=== PATIENT | male | born 1945 | race Caucasian/White ===

== ENCOUNTER 2021-04-27 20:52 | Inpatient (IN) ==
[2021-04-27] MEDS ORDERED: PIPERACILLIN SODIUM/TAZOBACTAM 4.5 GM in DEXTROSE 5% IN WATER 50 ML IV ONE (23:31)
[2021-04-27] MEDS ORDERED: VANCOMYCIN 1,500 MG in 0.9 % SODIUM CHLORIDE 500 ML IV ONE (23:31)
--- NOTE | 2021-04-27 23:36 | Emergency Department Note ---
HPI General Chief complaint: Extremity Injury, Lower Stated complaint: Infected RT knee Time Seen by Provider: 04/27/21 21:26 Source: patient Mode of arrival: ambulatory Limitations: no limitations History of Present Illness HPI Narrative: Narrative: 75 yo M w/ no PMH p/w R knee erythema. He reports that he had a contusion to the knee about one week ago. Since then he has developed erythema and pain over the knee. Sx have been constant and progressive since onset. He was seen by minor care and was started on bactrim and keflex and has been compliant w/ this but the erythema has spread despite abx. 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 He denies any known breaks in the skin, injuries, F/C, or other symptoms. The pain is constant w/o alleviating factors. It is worsened by movement but he is still ambulatory. Related Data Previous Rx's Medication Instructions Recorded cephalexin 500 mg capsule 500 mg PO QID 7 Days #28 cap 04/25/21 sulfamethoxazole 800 1 tab PO BID 7 Days #14 tab 04/25/21 mg-trimethoprim 160 mg tablet (Bactrim DS) Allergies Allergy/AdvReac Type Severity Reaction Status Date / Time No Known Drug Allergies Allergy Verified 04/28/21 03:03 Review of Systems ROS ROS Narrative: Narrative: All systems ED: reviewed and negative except as stated. [facility] Narrative Patient History Narrative: Narrative: Medical/Surgical/Family History All Active Problems (Updated 04/28/21 @ 02:11 by Shubham Pennington MD) Cellulitis of right knee (Acute) Right knee pain (Acute) Social History Smoking Status: Never smoker Alcohol Intake Frequency: does not drink Substance Use: does not use Exam Narrative Narrative: Narrative: General Limitations: no limitations General appearance: Present alert and in no apparent distress Head Head: Present atraumatic and normocephalic Chest Chest: Present normal inspection and symmetric chest wall rise Respiratory Respiratory: Present normal lung sounds bilaterally; Absent accessory muscle use or decreased breath sounds Cardiovascular Cardiovascular: Present regular rate, normal rhythm, +S1, +S2 and other (2+ B/L radial pulses); Absent systolic murmur or diastolic murmur Adbominal Abdominal: Present soft and normal bowel sounds; Absent distention or tenderness Extremities Extremities: Present other (R knee w/ flexion somewhat limited due to pain but predominantly intact. Extension intact. Erythema over the entire anterior knee from medial to lateral which is warm, tender, blanching w/o induration or fluctuance. ); Absent pedal edema Neurological Neurological: Present alert and oriented X3 Psychiatric Psychiatric: Present normal affect Skin Skin: Present warm (WNL) and dry Course Vital Signs Vital signs: Vital Signs Temperature 98.1 F 04/27/21 20:53 Pulse Rate 80 04/27/21 20:53 Respiratory Rate 18 04/27/21 20:53 Blood Pressure 133/78 04/27/21 20:53 Pulse Oximetry (%) 98 04/27/21 20:53 Temperature 98.6 F 04/28/21 03:32 Pulse Rate 63 04/28/21 03:32 Respiratory Rate 20 04/28/21 03:32 Blood Pressure 119/76 04/28/21 03:32 Pulse Oximetry (%) 96 04/28/21 03:32 MDM MDM Narrative Medical decision making narrative: 75 yo M p/w R knee pain, erythema. DDx - sepsis, NSTI, septic arthritis, cellulitis Pt presented stable, in NAD. His evaluation was at a minimum c/w cellulitis refractory to oral abx thus I started him on vanc and zosyn. He was nontoxic in appearance and did not meet SIRS criteria. He had no rapid progression, minimal pain and NSTI was unlikely. Septic arthritis seemed much less likely given his nearly intact active ROM and minimal to no pain w/ passive ROM, however CRP and ESR were elevated. I did not feel comfortable completing arthrocentesis in the ED as the erythema covered all access points to the joint. Given the risk of introducing bacteria into the synovial fluid along w/ my relatively lower suspicion for septic arthritis I felt that it would be reasonable to have pt assessed by ortho in the AM if he had no improvement. I discussed this plan w/ Dr Collado who was in agreement. He also requested a lactic acid and knee XR which I ordered. Lab Data Result diagrams: 04/27/21 23:43 04/27/21 23:42 Labs: Lab Results 04/27/21 04/27/21 04/28/21 Range/Units 23:42 23:43 02:20 WBC 11.8 H (4.5-11.0) K/mcL RBC 4.23 L (4.63-6.08) M/mcL Hgb 13.8 (13.7-17.5) g/dL Hct 38.6 L (40.1-51.0) % MCV 91.3 (80.0-100.0) fL MCH 32.6 (26.0-34.0) pg MCHC 35.8 (31.0-36.0) g/dL RDW 12.7 (11.5-14.5) % Plt Count 182 (140-440) K/mcL MPV 10.1 (7.4-10.4) fL Neut % (Auto) 77.2 (38.0-78.0) % Lymph % (Auto) 11.6 L (15.5-49.0) % [place] % (Auto) 10.2 (1.0-12.0) % Eos % (Auto) 0.7 (0.0-7.0) % Baso % (Auto) 0.3 (0.0-2.0) % Lymph # (Auto) 1.37 L (1.50-4.80) K/mcL [place] # (Auto) 1.20 H (0.10-0.90) K/mcL Eos # (Auto) 0.08 (0.00-0.70) K/mcL Baso # (Auto) 0.04 (0.00-0.30) K/mcL Absolute Neutrophils 9.09 H (1.80-8.00) K/mcL ESR 33 H (0-20) mm/hr VBG Lactic Acid 0.6 (0.5-2.0) mmol/L Sodium 129 L (133-145) mmol/L Potassium 4.2 (3.3-5.1) mmol/L Chloride 94 L (96-108) mmol/L Carbon Dioxide 25 (22-30) mmol/L Anion Gap 10.0 (8.0-16.0) BUN 18 (8-23) mg/dL Creatinine 1.2 (0.7-1.2) mg/dL GFR Calculation 59 Glucose 117 H (70-105) mg/dL Calcium 8.2 L (8.6-10.4) mg/dL Total Bilirubin 0.6 (0.1-1.0) mg/dL AST 39 (<40) U/L ALT 28 (<40) U/L Alkaline Phosphatase 67 (39-117) U/L C-React Prot High Sens 105.4 H (1.0-3.0) mg/L Total Protein 6.6 (5.9-8.4) gm/dL Albumin 3.7 (3.2-5.2) gm/dL Globulin 2.9 (2.2-3.7) gm/dL Albumin/Globulin Ratio 1.3 (1.0-2.3) Discharge Plan Patient/Caregiver Discharge Instructions Pt seen by RETAIL PRESENTATION SPECIALIST/PA only: No Clinical Impression: Right knee pain, Cellulitis of right knee Patient Disposition: Xfer As Inpt ([facility]) Condition: Fair Discharge Date/Time: 04/28/21 02:45
[2021-04-28 00:21] LABS: Basophils # (Auto) 0.04 K/mcL (0.00-0.30); Basophils % (Auto) 0.3 % (0.0-2.0); Eosinophils # (Auto) 0.08 K/mcL (0.00-0.70); Eosinophils % (Auto) 0.7 % (0.0-7.0); Hematocrit 38.6 % (40.1-51.0); Hemoglobin 13.8 g/dL (13.7-17.5); Lymphocytes # (Auto) 1.37 K/mcL (1.50-4.80); Lymphocytes % (Auto) 11.6 % (15.5-49.0); Mean Cell Volume 91.3 fL (80.0-100.0); Mean Corpuscular HGB Conc 35.8 g/dL (31.0-36.0); Mean Platelet Volume 10.1 fL (7.4-10.4); Monocytes % (Auto) 10.2 % (1.0-12.0); Neutrophils % (Auto) 77.2 % (38.0-78.0); Platelet Count 182 K/mcL (140-440); RBC 4.23 M/mcL (4.63-6.08); Red Cell Distribution Width 12.7 % (11.5-14.5); WBC 11.8 K/mcL (4.5-11.0)
[2021-04-28 00:34] LABS: Erythrocyte Sedimentation Rate 33 mm/hr (0-20)
[2021-04-28 00:38] LABS: ALT/SGPT 28 U/L (<40); AST/SGOT 39 U/L (<40); Albumin 3.7 gm/dL (3.2-5.2); Albumin/Globulin Ratio 1.3 (1.0-2.3); Alkaline Phosphatase 67 U/L (39-117); Bilirubin,Total 0.6 mg/dL (0.1-1.0); Blood Urea Nitrogen 18 mg/dL (8-23); Calcium 8.2 mg/dL (8.6-10.4); Carbon Dioxide 25 mmol/L (22-30); Chloride 94 mmol/L (96-108); Globulin 2.9 gm/dL (2.2-3.7); Glomerular Filtration Rate 59; Glucose 117 mg/dL (70-105)
[2021-04-28 00:51] LABS: CRP,High Sensitivity 105.4 mg/L (1.0-3.0)
[2021-04-28] MEDS ORDERED: VANCOMYCIN PER PHARMACY IV ONE (02:21)
[2021-04-28] MEDS ORDERED: ACETAMINOPHEN 325 MG TABLET PO PRN ×2 (02:23→08:48)
[2021-04-28] MEDS ORDERED: PIPERACILLIN SODIUM/TAZOBACTAM 4.5 GM in DEXTROSE 5% IN WATER 50 ML IV SCH (02:30)
--- NOTE | 2021-04-28 03:20 | XRay Report ---
CLINICAL INFORMATION: Pain and erythema COMPARISON: 04/25/2021 FINDINGS: Patellofemoral and tibiofemoral joint spaces are normal in width and alignment arthritic change. No effusions are present. There are no osseous abnormalities. Moderate diffuse prepatellar soft tissue swelling could indicate cellulitis and possibly prepatellar bursitis IMPRESSION: Diffuse prevertebral soft tissue swelling which may indicate cellulitis and prepatellar bursitis Interpreted and Authenticated by: Jeremiah Houston 04/28/21
[2021-04-28] MEDS ORDERED: traZODone HCL 50 MG TABLET PO PRN (08:48)
[2021-04-28] MEDS ORDERED: IPRATROPIUM/ALBUTEROL 3 ML AMPUL.NEB NEB PRN (08:48)
[2021-04-28] MEDS ORDERED: morphine 4 MG/ML VIAL IV PRN (08:48)
[2021-04-28] MEDS ORDERED: ONDANSETRON 4 MG/2 ML VIAL IV PRN (08:48)
[2021-04-28] MEDS ORDERED: VANCOMYCIN PER PHARMACY IV SCH (09:00)
--- NOTE | 2021-04-28 09:04 | Internal Med History&Physical ---
HPI History of Present Illness Patient information: Note initiated : 04/28/21 at 8:52 am Service Date, if different from initiated Date: [] Patient: Jerod Gonzales 75 y/o M admitted on 04/28/21 for Infected RT knee. Chief Complaint: [right knee swelling and pain] Chief complaint: right knee swelling and pain History of present illness: Mr. Gonzales is a 75 year old M no past medical history presenting with 1 week history of swelling and pain of his right knee. He thought that he might have been bumped his right knee into something. He started to experience swelling and pain of his right knee with the area of swelling gradually spreading. He is complaining of the 8 out of 10, deep, constant pain radiating from his right knee to the mid thigh and to lower leg, respectively. Exacerbating factors including moving his right knee joint and alleviating factors including resting. He denies any systemic symptoms such as fever, chills, diaphoresis, change in appetite, general body weakness, or GI upset such as nausea or vomiting. He presented to the minor care and was being given oral antibiotics Bactrim and Keflex for the past Sunday. He went back to the minor care yesterday due to worsening of his symptoms. He presented to our ED overnight due to continued worsening of his symptoms. Vital signs upon ED presentations within normal limits. Labs significant for mild leukocytosis with WBC 11.8. Serum lactic acid 0.6. ESR 33. Right knee x-ray showing diffuse prevertebral soft tissue swelling which may indicate cellulitis in the prepatella bursitis. Constitutional Constitutional: Absent chills, excessive sweating, fatigue, fever(s) or weakness EENT Eyes: Absent blurry vision, change in vision, loss of vision or other visual disturbances Ears: Absent decreased hearing or tinnitus Nose, mouth and throat: Absent abnormal hearing, dry mouth, headache(s), nasal congestion or sore throat Cardiovascular Cardiovascular: Absent chest pain, chest pain at rest, edema, irregular heart rhythm or palpatations Respiratory Respiratory: Absent cough, dyspnea or wheezing Gastrointestinal Gastrointestinal: Absent abdominal pain, constipation, diarrhea, nausea or vomiting Musculoskeletal Musculoskeletal: Present arthralgias, joint swelling and limited range of motion; Absent back pain, deformity, muscle cramps, muscle weakness or numbness Integumentary Integumentary: Absent lesions, rash or wounds Neurological Neurological: Absent focal weakness, headache(s) or numbness Psychiatric Psychiatric: Absent anxiety, depression or hallucinations PFSH PFSH All Active Problems (Updated 04/28/21 @ 09:14 by Harley Collado MD) Hyponatremia (Acute) Bursitis of right knee (Acute) Cellulitis of right knee (Acute) Right knee pain (Acute) Social History alcohol intake frequency: does not drink substance use type: does not use MEDS/ALLERGIES Home Medications and Allergies Home Medications Medication Instructions Recorded Confirmed Type cephalexin 500 mg capsule 500 mg PO QID 7 Days #28 cap 04/25/21 04/28/21 Rx sulfamethoxazole 800 1 tab PO BID 7 Days #14 tab 04/25/21 04/28/21 Rx mg-trimethoprim 160 mg tablet (Bactrim DS) Allergies Allergy/AdvReac Type Severity Reaction Status Date / Time No Known Drug Allergies Allergy Verified 04/28/21 03:03 EXAM Constitutional Vitals: Temp Pulse Resp BP Pulse Ox 36.6 C 68 20 117/70 93 04/28/21 07:44 04/28/21 07:44 04/28/21 07:44 04/28/21 07:44 04/28/21 07:44 General appearance: cooperative and no acute distress Head Head exam: Present atraumatic and normocephalic Eye Eye exam: Present EOMI and PERRL ENT ENT exam: Present mucous membranes moist, normal exam and normal external ear exam Neck Neck exam: Present normal inspection; Absent lymphadenopathy, tenderness or thyromegaly Respiratory Respiratory exam: Absent accessory muscle use, respiratory distress or wheezes Cardiovascular Cardiovascular exam: Present normal rate and rhythm; Absent JVD GI/Abdominal GI/Abdominal exam: Present normal bowel sounds and soft; Absent organomegaly or tenderness Rectal Rectal exam: Present deferred Extremities Exam Extremities exam: Present joint swelling, normal capillary refill and tenderness; Absent full ROM or normal inspection Additional comments: Swelling, erythema, tenderness to touch, warm , limited ROM of the right knee. Neurological Exam Neurological exam: Present alert, CN II-XII intact and oriented X3; Absent motor sensory deficit Psychiatric Psychiatric exam: Present normal affect and normal mood; Absent anxious or depressed Skin Skin exam: Present dry and intact DATA Data Completed and Pending Labs: Labs from last 24 hours 04/28/21 04/27/21 04/27/21 02:20 23:43 23:42 WBC 11.8 H RBC 4.23 L Hgb 13.8 Hct 38.6 L MCV 91.3 MCH 32.6 MCHC 35.8 RDW 12.7 Plt Count 182 MPV 10.1 Neut % (Auto) 77.2 Lymph % (Auto) 11.6 L [place] % (Auto) 10.2 Eos % (Auto) 0.7 Baso % (Auto) 0.3 Lymph # (Auto) 1.37 L [place] # (Auto) 1.20 H Eos # (Auto) 0.08 Baso # (Auto) 0.04 Absolute Neutrophils 9.09 H ESR 33 H VBG Lactic Acid 0.6 Sodium 129 L Potassium 4.2 Chloride 94 L Carbon Dioxide 25 Anion Gap 10.0 BUN 18 Creatinine 1.2 GFR Calculation 59 Glucose 117 H Calcium 8.2 L Total Bilirubin 0.6 AST 39 ALT 28 Alkaline Phosphatase 67 C-React Prot High Sens 105.4 H Total Protein 6.6 Albumin 3.7 Globulin 2.9 Albumin/Globulin Ratio 1.3 A/P Assessment and plan (1) Cellulitis of right knee: Status: Acute (2) Bursitis of right knee: Status: Acute (3) Hyponatremia: Status: Acute Narrative A/P Narrative: Assessment and Plans: 1. Cellulitis and bursitis of the right knee: Inpatient med surg Consult Dr. Gomes orthopedic surgeon, recs. appreciated NPO with NS@100cc/hr Lactic acid CRP, ESR, Procalcitonin cbc w/ auto diff in the morning to trend WBC Vancomycin with MRSA screening Zosyn Tylenol PRN fever/mild pain Percocet PRN moderate pain Morphine IV PRN severe pain Bedrest Physical therapy Occupational therapy 2. Hyponatremia: NPO with NS@100cc/hr CMP in the morning to trend serum sodium level GI ppx: not currently indicated DVT ppx: SCDs Code status: Full Prognosis: stable Disposition: Inpatient med surg Time Spent With Patient Time: Total time spent is greater than 50% in coordination of care (as documented) at patient's floor/unit and/or counseling patient: Total time spent with greater than 50% in coordination of care (as documented) at patient's floor/unit and/or counseling patient:: Greater than 35 minutes QUALITY Stroke Symptom Onset Unknown: No VTE Deep Vein Thrombosis/Pulmonary Embolism Present on Admission: No
[2021-04-28] MEDS: DOCUSATE SODIUM 100 MG CAPSULE PO SCH ×2 (09:49→20:56)
[2021-04-28] MEDS: 0.9 % SODIUM CHLORIDE 1,000 ML IV SCH (09:49)
[2021-04-28] MEDS: PIPERACILLIN SODIUM/TAZOBACTAM 3.375 GM in DEXTROSE 5% IN WATER 50 ML IV SCH ×4 (09:49→23:30)
[2021-04-28] MEDS: oxyCODONE/APAP 5/325MG TABLET PO PRN ×3 (10:14→23:08)
[2021-04-28] MEDS: VANCOMYCIN 1,000 MG in 0.9 % SODIUM CHLORIDE 250 ML IV SCH ×2 (10:59→20:56)
[2021-04-28] MEDS: 0.9 % SODIUM CHLORIDE 10 ML SYRINGE IV SCH ×2 (14:04→22:28)
--- NOTE | 2021-04-28 14:43 | Consultation ---
DATE OF CONSULTATION: 04/28/2021 REASON FOR CONSULTATION: Right knee cellulitis. CONSULTING PROVIDER: Harley Collado M.D. HISTORY OF PRESENT ILLNESS: The patient is a 75-year-old male, otherwise healthy, who presented to the emergency department yesterday evening with complaints of increasing right knee pain, swelling, and redness. He reports maybe a week or so ago he was working on his knees when he thought it was just a bruise, which he was trying to explain for the reason for the increase in pain. He was subsequently seen in [facility] care who started him on oral antibiotics and subsequently saw him a day or two later and did an IM antibiotic injection. However, this only worsen his symptoms. The two antibiotics that he was given were Keflex and Bactrim. He has been ambulating on this and range of motion was okay. However, it is worsening and has been admitted to the hospitalist service for IV antibiotics. On presentation, he has no other complaints. PAST MEDICAL HISTORY: None. PAST SURGICAL HISTORY: Not related. ALLERGIES: No known drug allergies. MEDICATIONS: None routinely, but currently he was taking Bactrim and Keflex. SOCIAL HISTORY: He resides locally with his . He denies tobacco use or alcohol. REVIEW OF SYSTEMS: Denies any weakness or fevers or chills. Otherwise, a 10-point review of systems other than HPI is negative. PHYSICAL EXAMINATION: GENERAL: The patient is alert, oriented, interactive, appropriate, not in acute distress. EXTREMITIES: Examination of the right lower extremity isolated to the knee reveals that he has significant swelling over top of the patella itself. There is no joint effusion that is significant. There is some positive ballottement to the patella itself and this is painful. There is erythema that surrounds this and goes up proximal to the patella as well as medially. It almost wraps circumferentially but the most posterior aspect of the popliteal fossa is not erythematous and goes to approximately a third down the leg. This is greater than the outlined portion, which was done at the urgent care facility. On range of motion, he has full knee extension, flexion approximately to 90 degrees. However, it is somewhat painful the more the flexion is, given the tightness over the anterior aspect of the knee. The foot is warm and well perfused, otherwise. IMAGING: He has plain radiographs of the knee, which did not demonstrate any bony abnormalities. Joint spaces are well maintained. No significant arthritis and does not demonstrate any joint effusion, but does have swelling of the soft tissue over the anterior aspect of the patella itself. LABORATORY DATA: He has a MRSA screen, which is pending. CRP is 9.6. He has a sodium of 129, glucose 117, creatinine 1.2. White count 11.8 with 77% neutrophils, which is high normal. He has an ESR of 33. ASSESSMENT AND PLAN: This 75-year-old male who has a septic right knee prepatellar bursitis. I discussed the diagnosis with him today. He has been on IV antibiotics x1 dose this morning. Currently on vancomycin and Zosyn. I discussed my recommendation that I am not concerned regarding the joint involvement. We will try to treat this with 24 hours of IV antibiotics and see if there is some improvement. If there is no improvement, we could then proceed with right knee incision and drainage of the bursa, which will debulk or decrease the bacterial load and likely make it more amenable to antibiotic treatment. However, ideally if it can be treated with antibiotics alone, would be the preferred method. I discussed this with them. They understand. We will reevaluate in the morning. If there is no improvement regarding the erythema and pain, we would then proceed with surgical intervention. He will be n.p.o. at midnight. Otherwise, questions were answered. FREDDY:jordyn Job ID: [id number] Doc ID: [id number] MD SOBEIDA Mejia
[2021-04-28] MEDS: SENNOSIDES 1 TABLET PO SCH (22:29)
[2021-04-29] MEDS: oxyCODONE/APAP 5/325MG TABLET PO PRN ×4 (04:19→18:55)
[2021-04-29] MEDS: 0.9 % SODIUM CHLORIDE 1,000 ML IV SCH ×4 (04:21→16:00)
[2021-04-29] MEDS: PIPERACILLIN SODIUM/TAZOBACTAM 3.375 GM in DEXTROSE 5% IN WATER 50 ML IV SCH ×4 (05:11→23:47)
[2021-04-29] MEDS: 0.9 % SODIUM CHLORIDE 10 ML SYRINGE IV SCH ×3 (05:27→23:46)
--- NOTE | 2021-04-29 06:44 | Orthopedic Progress Note ---
SUBJECTIVE Subjective Patient information: Note initiated : 04/29/21 at 6:41 am Service Date, if different from initiated Date: [] Patient: Jerod Gonzales 75 y/o M admitted on 04/28/21 for Infected RT knee. Chief Complaint: [no acute events overnight. pain about the same] Constitutional Vitals: Vital Signs Temp Pulse Resp BP Pulse Ox 98.1 F 62 20 111/70 92 04/29/21 04:00 04/29/21 04:00 04/29/21 04:00 04/29/21 04:00 04/29/21 04:00 Period Temp Pulse Resp BP Sys/Enriquez Pulse Ox Last 24 Hr 97.8 F-99.5 F 62-69 18-22 111-125/70-76 91-94 Intake and Output 04/28/21 04/29/21 04/29/21 21:59 05:59 13:59 Intake Total 1110 1900 Output Total 1450 1275 Balance -340 625 Weight 193 lb Intake & Output: Intake & Output 04/28/21 04/29/21 04/29/21 21:59 05:59 13:59 Intake Total 1110 1900 Output Total 1450 1275 Balance -340 625 Weight 193 lb Intake: IV 350 1050 Sodium Chloride 0.9% 1,000 ml @ 1000 100 mls/hr IV .Q10H DAVID Rx#: [id number] Zosyn 3.375 gm In Dextrose 5% 100 50 in Water 50 ml @ 100 mls/hr IV Q6H DAVID Rx#:[id number] Vancomycin 1,000 mg In Sodium 250 Chloride 0.9% 250 ml @ 250 mls/ hr IV Q12H DAVID Rx#:[id number] Oral 760 850 Output: Void Amount 1450 1275 Other: Meal Lunch Percent of Meal Consumed 100% Feeding Ability Independent Urine Appearance Clear Clear Urine Color Bright Yellow Pale Urine Odor Normal Additional findings Additional findings: alert, appropriate -no significant difference from prior exam- erythema spread the same with pitting edema over the medial tibial face. ROM 0-70 degrees. swelling over the patella itself. tender with palpation OBJ DATA Labs CBC & Chem 7: 04/27/21 23:43 04/27/21 23:42 Labs: Abnormal Lab Results 04/27/21 04/27/21 04/27/21 23:43 23:42 23:42 WBC 11.8 H RBC 4.23 L Hct 38.6 L Lymph % (Auto) 11.6 L Lymph # (Auto) 1.37 L [place] # (Auto) 1.20 H Absolute Neutrophils 9.09 H ESR 33 H Sodium 129 L Chloride 94 L Glucose 117 H Calcium 8.2 L C-Reactive Protein 9.60 H C-React Prot High Sens 105.4 H Meds: Medications Acetaminophen (Acetaminophen 325 Mg Tablet) 650 mg PO Q6HP PRN; Protocol PRN Reason: Per Pain Protocol/Fever > 101 Albuterol/Ipratropium (Ipratropium/Albuterol 3 Ml Ampul.Neb) 3 ml NEB Q4HRT PRN PRN Reason: Wheezing Docusate Sodium (Docusate Sodium 100 Mg Capsule) 100 mg PO BID [facility] Last Admin: 04/28/21 20:56 Dose: 100 mg Documented by: Sodium Chloride (Sodium Chloride 0.9%) 1,000 mls @ 100 mls/hr IV .Q10H [facility] Last Admin: 04/29/21 05:27 Dose: Not Given Documented by: Piperacillin Sod/Tazobactam (Sod 3.375 gm/ Dextrose) 50 mls @ 100 mls/hr IV Q6H [facility] Last Admin: 04/29/21 05:11 Dose: 100 mls/hr Documented by: Vancomycin HCl 1,000 mg/ (Sodium Chloride) 250 mls @ 250 mls/hr IV Q12H [facility] Last Infusion: 04/28/21 21:56 Dose: Infused Documented by: Morphine Sulfate (Morphine 4 Mg/Ml Vial) 4 mg IV Q4HP PRN; Protocol PRN Reason: Per Pain Protocol Ondansetron HCl (Ondansetron 4 Mg/2 Ml Vial) 4 mg IV Q6HP PRN PRN Reason: Nausea And Vomiting Oxycodone/Acetaminophen (Oxycodone/Apap 5/325mg Tablet) 1 tab PO Q4HP PRN; Protocol PRN Reason: Per Pain Protocol Last Admin: 04/29/21 04:19 Dose: 1 tab Documented by: Senna (Sennosides 1 Tablet) 2 tab PO HS [facility] Last Admin: 04/28/21 22:29 Dose: Not Given Documented by: Sodium Chloride (0.9 % Sodium Chloride 10 Ml Syringe) 10 ml IV Q8 [facility] Last Admin: 04/29/21 05:27 Dose: Not Given Documented by: Trazodone HCl (Trazodone Hcl 50 Mg Tablet) 25 mg PO HSP PRN PRN Reason: Insomnia Vancomycin HCl (Vancomycin Per Pharmacy) 1 order IV UD DAVID A/P Assessment and plan (1) Bursitis of right knee: Assessment and plan: HD 2 with septic pre patellar bursitis. - no improvement on 24 hours IV abx. Recommend formal irrigation/debridement of the septic bursa. Discussed with patient. He understands and does wish to proceed in this fashion. Will perform today after 12 noon when OR available. Status: Acute Time Spent With Patient Time: Total time spent is greater than 50% in coordination of care (as documented) at patient's floor/unit and/or counseling patient:
[2021-04-29 06:45] LABS: Basophils # (Auto) 0.04 K/mcL (0.00-0.30); Basophils % (Auto) 0.5 % (0.0-2.0); Eosinophils # (Auto) 0.18 K/mcL (0.00-0.70); Hematocrit 36.4 % (40.1-51.0); Hemoglobin 12.4 g/dL (13.7-17.5); Lymphocytes # (Auto) 1.06 K/mcL (1.50-4.80); Mean Cell Volume 93.8 fL (80.0-100.0); Mean Corpuscular HGB Conc 34.1 g/dL (31.0-36.0); Mean Platelet Volume 10.3 fL (7.4-10.4); Monocytes # (Auto) 1.08 K/mcL (0.10-0.90); Monocytes % (Auto) 12.2 % (1.0-12.0); Neutrophils % (Auto) 73.3 % (38.0-78.0); Platelet Count 170 K/mcL (140-440); RBC 3.88 M/mcL (4.63-6.08); Red Cell Distribution Width 12.6 % (11.5-14.5); WBC 8.9 K/mcL (4.5-11.0)
[2021-04-29 07:36] LABS: ALT/SGPT 26 U/L (<40); AST/SGOT 29 U/L (<40); Albumin 3.1 gm/dL (3.2-5.2); Alkaline Phosphatase 70 U/L (39-117); Bilirubin,Total 0.7 mg/dL (0.1-1.0); Blood Urea Nitrogen 13 mg/dL (8-23); Calcium 8.2 mg/dL (8.6-10.4); Carbon Dioxide 25 mmol/L (22-30); Chloride 99 mmol/L (96-108); Glomerular Filtration Rate 73; Glucose 99 mg/dL (70-105)
--- NOTE | 2021-04-29 08:02 | EKG ---
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
--- NOTE | 2021-04-29 09:11 | Internal Med Progress Note ---
SUBJECTIVE Subjective Patient information: Note initiated : 04/29/21 at 9:07 am Service Date, if different from initiated Date: [] Patient: Jerod Gonzales 75 y/o M admitted on 04/28/21 for Infected RT knee. Chief Complaint: [] Interval history: Mr. Gonzales is a 75 year old M no past medical history presenting with 1 week history of swelling and pain of his right knee. He thought that he might have been bumped his right knee into something. He started to experience swelling and pain of his right knee with the area of swelling gradually spreading. He is complaining of the 8 out of 10, deep, constant pain radiating from his right knee to the mid thigh and to lower leg, respectively. Exacerbating factors including moving his right knee joint and alleviating factors including resting. He denies any systemic symptoms such as fever, chills, diaphoresis, change in appetite, general body weakness, or GI upset such as nausea or vomiting. He presented to the minor care and was being given oral antibiotics Bactrim and Keflex for the past Sunday. He went back to the minor care yesterday due to worsening of his symptoms. He presented to our ED overnight due to continued worsening of his symptoms. Vital signs upon ED presentations within normal limits. Labs significant for mild leukocytosis with WBC 11.8. Serum lactic acid 0.6. ESR 33. Right knee x-ray showing diffuse prevertebral soft tissue swelling which may indicate cellulitis in the prepatella bursitis. 04/29: Afebrile overnight. WBC 8.9. Blood cultures no growth to date. c/o 5/10 dull constant right knee pain. Denies fever or chills or sweating. Continue IV fluid, Vancomycin/Zosyn, pain control. Seen by Dr. Gomes, decided to perform formal irrigation and debridement at noon today. Constitutional Vitals: Vital Signs Temp Pulse Resp BP Pulse Ox 36.8 C 63 20 119/74 92 04/29/21 07:20 04/29/21 07:20 04/29/21 07:20 04/29/21 07:20 04/29/21 07:20 Period Temp Pulse Resp BP Sys/Enriquez Pulse Ox Last 24 Hr 36.7 C-37.5 C 62-69 18-22 111-125/70-76 91-94 Intake and Output 04/28/21 04/29/21 04/29/21 21:59 05:59 13:59 Intake Total 1110 1900 50 Output Total 1450 1275 Balance -340 625 50 Weight 87.543 kg Intake & Output: Intake & Output 04/28/21 04/29/21 04/29/21 21:59 05:59 13:59 Intake Total 1110 1900 50 Output Total 1450 1275 Balance -340 625 50 Weight 87.543 kg Intake: IV 350 1050 50 Sodium Chloride 0.9% 1,000 ml @ 1000 100 mls/hr IV .Q10H [facility] Rx#: [id number] Zosyn 3.375 gm In Dextrose 5% 100 50 50 in Water 50 ml @ 100 mls/hr IV Q6H [facility] Rx#:[id number] Vancomycin 1,000 mg In Sodium 250 Chloride 0.9% 250 ml @ 250 mls/ hr IV Q12H [facility] Rx#:[id number] Oral 760 850 Output: Void Amount 1450 1275 Other: Meal Lunch Percent of Meal Consumed 100% Feeding Ability Independent Urine Appearance Clear Clear Urine Color Bright Yellow Pale Urine Odor Normal General appearance: average body habitus, cooperative and no acute distress Head Head exam: Present atraumatic and normal inspection Eye Eye exam: Present normal appearance ENT ENT exam: Present mucous membranes moist, normal exam and normal external ear exam Neck Neck exam: Present normal inspection Respiratory Respiratory exam: Present normal respiratory exam Cardiovascular Cardiovascular exam: Present normal rate and rhythm GI/Abdominal GI/Abdominal exam: Present normal bowel sounds Extremities Exam Extremities exam: Present joint swelling and tenderness; Absent full ROM or normal inspection Additional comments: Erythema, warmth, tenderness, swelling of the right knee joint with spread to lower thigh and medial/lateral cano Back Exam Back exam: Present normal inspection Neurological Exam Neurological exam: Present alert and oriented X3 Skin Skin exam: Present intact and warm OBJ DATA Labs CBC & Chem 7: 04/29/21 05:11 04/29/21 05:11 Labs: Abnormal Lab Results 04/29/21 04/29/21 04/27/21 05:11 05:11 23:43 WBC 11.8 H RBC 3.88 L 4.23 L Hgb 12.4 L Hct 36.4 L 38.6 L Lymph % (Auto) 12.0 L 11.6 L [place] % (Auto) 12.2 H Lymph # (Auto) 1.06 L 1.37 L [place] # (Auto) 1.08 H 1.20 H Absolute Neutrophils 9.09 H ESR 33 H Sodium Chloride Glucose Calcium 8.2 L C-Reactive Protein C-React Prot High Sens Albumin 3.1 L 04/27/21 04/27/21 23:42 23:42 WBC RBC Hgb Hct Lymph % (Auto) [place] % (Auto) Lymph # (Auto) [place] # (Auto) Absolute Neutrophils ESR Sodium 129 L Chloride 94 L Glucose 117 H Calcium 8.2 L C-Reactive Protein 9.60 H C-React Prot High Sens 105.4 H Albumin Meds: Medications Acetaminophen (Acetaminophen 325 Mg Tablet) 650 mg PO Q6HP PRN; Protocol PRN Reason: Per Pain Protocol/Fever > 101 Albuterol/Ipratropium (Ipratropium/Albuterol 3 Ml Ampul.Neb) 3 ml NEB Q4HRT PRN PRN Reason: Wheezing Docusate Sodium (Docusate Sodium 100 Mg Capsule) 100 mg PO BID [facility] Last Admin: 04/28/21 20:56 Dose: 100 mg Documented by: Sodium Chloride (Sodium Chloride 0.9%) 1,000 mls @ 100 mls/hr IV .Q10H [facility] Last Admin: 04/29/21 05:27 Dose: Not Given Documented by: Piperacillin Sod/Tazobactam (Sod 3.375 gm/ Dextrose) 50 mls @ 100 mls/hr IV Q6H [facility] Last Infusion: 04/29/21 07:25 Dose: Infused Documented by: Vancomycin HCl 1,000 mg/ (Sodium Chloride) 250 mls @ 250 mls/hr IV Q12H [facility] Last Infusion: 04/28/21 21:56 Dose: Infused Documented by: Morphine Sulfate (Morphine 4 Mg/Ml Vial) 4 mg IV Q4HP PRN; Protocol PRN Reason: Per Pain Protocol Ondansetron HCl (Ondansetron 4 Mg/2 Ml Vial) 4 mg IV Q6HP PRN PRN Reason: Nausea And Vomiting Oxycodone/Acetaminophen (Oxycodone/Apap 5/325mg Tablet) 1 tab PO Q4HP PRN; Protocol PRN Reason: Per Pain Protocol Last Admin: 04/29/21 04:19 Dose: 1 tab Documented by: Senna (Sennosides 1 Tablet) 2 tab PO HS [facility] Last Admin: 04/28/21 22:29 Dose: Not Given Documented by: Sodium Chloride (0.9 % Sodium Chloride 10 Ml Syringe) 10 ml IV Q8 [facility] Last Admin: 04/29/21 05:27 Dose: Not Given Documented by: Trazodone HCl (Trazodone Hcl 50 Mg Tablet) 25 mg PO HSP PRN PRN Reason: Insomnia Vancomycin HCl (Vancomycin Per Pharmacy) 1 order IV UD [facility]ID A/P Assessment and plan (1) Cellulitis of right knee: Status: Acute (2) Bursitis of right knee: Status: Acute (3) Hyponatremia: Status: Acute Narrative A/P Narrative: Assessment and Plans: 1. Cellulitis and bursitis of the right knee: Inpatient med surg Consult Dr. Gomes orthopedic surgeon, recs. appreciated Seen by Dr. Gomes this morning, decided to perform formal irrigation and debridement at noon today. NPO with NS@100cc/hr Lactic acid CRP, ESR, Procalcitonin Blood culture, no growth to date cbc w/ auto diff in the morning to trend WBC Vancomycin with MRSA screening Zosyn Tylenol PRN fever/mild pain Percocet PRN moderate pain Morphine IV PRN severe pain Bedrest Physical therapy Occupational therapy 2. Hyponatremia: NPO with NS@100cc/hr CMP in the morning to trend serum sodium level GI ppx: not currently indicated DVT ppx: SCDs Code status: Full Prognosis: stable Disposition: Inpatient med surg Time Spent With Patient Time: Total time spent is greater than 50% in coordination of care (as documented) at patient's floor/unit and/or counseling patient: Total time spent with greater than 50% in coordination of care (as documented) at patient's floor/unit and/or counseling patient:: Greater than 35 minutes QUALITY Stroke Symptom Onset Unknown: No VTE Deep Vein Thrombosis/Pulmonary Embolism Present on Admission: No
[2021-04-29] MEDS: DOCUSATE SODIUM 100 MG CAPSULE PO SCH ×2 (10:11→21:57)
[2021-04-29] MEDS: VANCOMYCIN 1,000 MG in 0.9 % SODIUM CHLORIDE 250 ML IV SCH (10:34)
[2021-04-29] MEDS ORDERED: ceFAZolin 2 GM in DEXTROSE 5% IN WATER 50 ML IV SCH (12:00)
[2021-04-29] MEDS ORDERED: VANCOMYCIN 1 GM VIAL TOPICAL ONE (12:00)
[2021-04-29] MEDS ORDERED: TRANEXAMIC ACID 1,000 MG/10 ML VIAL ONE (12:18)
[2021-04-29] MEDS ORDERED: fentaNYL 100 MCG/2 ML VIAL IV ONE (12:18)
[2021-04-29] MEDS ORDERED: ONDANSETRON 4 MG/2 ML VIAL ONE (12:18)
[2021-04-29] MEDS ORDERED: DEXAMETHASONE 10 MG/ML VIAL ONE (12:18)
[2021-04-29] MEDS ORDERED: GLYCOPYRROLATE 0.2 MG/ML VIAL IV ONE (12:18)
[2021-04-29] MEDS ORDERED: LIDOCAINE HCL/PF 100 MG/5 ML SYRINGE IV ONE (12:18)
[2021-04-29] MEDS ORDERED: KETAMINE 50 MG/ML Syringe (ANEST) IV ONE (12:18)
[2021-04-29] MEDS ORDERED: PROPOFOL 200 MG/20 ML VIAL IV ONE (12:18)
[2021-04-29] MEDS ORDERED: MAGNESIUM SULFATE 2 GM/50 ML BAG IV ONE (12:18)
[2021-04-29] MEDS ORDERED: BENZOCAINE/MENTHOL 1 LOZENGE PO PRN ×2 (12:36→23:51)
[2021-04-29] MEDS ORDERED: IPRATROPIUM/ALBUTEROL 3 ML AMPUL.NEB NEB PRN (12:36)
[2021-04-29] MEDS ORDERED: METOPROLOL TARTRATE 5 MG/5 ML VIAL IV PRN (12:36)
[2021-04-29] MEDS ORDERED: LABETALOL 5 MG/ML ML IV PRN (12:36)
[2021-04-29] MEDS ORDERED: ACETAMINOPHEN 1,000 MG/100 ML BAG IV ONE (12:36)
[2021-04-29] MEDS ORDERED: METHOCARBAMOL 1,000 MG/10 ML VIAL IV PRN (12:36)
[2021-04-29] MEDS ORDERED: fentaNYL 100 MCG/2 ML VIAL IV PRN (12:36)
[2021-04-29] MEDS ORDERED: ONDANSETRON 4 MG/2 ML VIAL IV PRN (12:36)
[2021-04-29] MEDS ORDERED: NALOXONE HCL 0.4 MG/ML VIAL IV PRN (12:36)
[2021-04-29] MEDS ORDERED: LACTATED RINGERS 250 ML IV PRN (12:36)
[2021-04-29] MEDS ORDERED: LACTATED RINGERS 1,000 ML IV SCH (12:45)
--- NOTE | 2021-04-29 13:16 | Brief Operative Note ---
Brief Operative Note Date of procedure: 04/29/21 Pre-op diagnosis: right knee prepatellar septic bursitis Post-op diagnosis: same Procedure: right knee prepatellar septic bursectomy Grafts/Implants: No Anesthesia: GETA Findings: septic bursitis- no beka purulence Complications: none Surgeon: Cathleen Gomes Estimated blood loss (cc): 0 Tourniquet Time (Minutes): 36 Specimens Removed/Pathology: other Condition: stable Disposition: PACU
[2021-04-29] MEDS ORDERED: LORazepam 2 MG/ML VIAL IV ONE (13:36)
[2021-04-29] MEDS ORDERED: MEPERIDINE 25 MG/ML VIAL IV ONE (13:36)
[2021-04-29] MEDS ORDERED: LORazepam 2 MG/ML VIAL ONE (13:44)
--- NOTE | 2021-04-29 15:10 | Operative Note ---
DATE OF OPERATION: 04/29/2021 PREOPERATIVE DIAGNOSIS: Right knee prepatellar septic bursitis. POSTOPERATIVE DIAGNOSIS: Right knee prepatellar septic bursitis. PROCEDURE PERFORMED: Right knee prepatellar bursectomy with irrigation and debridement and closure. SURGEON: Cathleen Gomes M.D. VARNISHER PLASTICOATER: None. ANESTHESIA: General. INTRAVENOUS FLUIDS: A liter of lactated Ringer's. ESTIMATED BLOOD LOSS: Minimal. TOURNIQUET TIME: 36 minutes at 250 mmHg. ANTIBIOTICS: Two grams Ancef. IMPLANTS: None. PATHOLOGY/LAB: Cultures x2. INTRAOPERATIVE COMPLICATIONS: None apparent. INDICATIONS FOR PROCEDURE: The patient is a 75-year-old male who over a week ago now reports that he had some increasing pain about the knee. He thought it was from working on his knees and had a little abrasion, but the erythema became more prominent and swelling occurred. He was seen in my care x2 and started on Keflex and Bactrim as well as one dose of IV antibiotics; however, he continued to have increasing swelling and pain about the knee. He was seen in the Emergency Department, at that time admitted by the hospitalist and put on vancomycin and Zosyn. The following day, Orthopedics consulted secondary to continued erythema that was spreading and pain about the knee. Over the last 24 hours the IV antibiotics have not improved his symptoms. Thus, I discussed potentially doing irrigation and debridement and removal of bursa, which would likely decrease the bacterial load and allow him to recover from this a bit faster. I discussed this with him and risks of surgery. He understands and wished to proceed in that fashion. DESCRIPTION OF PROCEDURE: Patient was met in the preoperative holding area where site was verified and marked with the patient's input. He was then taken to the operating room where he underwent successful anesthesia via LMA. His right lower extremity had a well-padded tourniquet placed on proximal thigh and was prepped and draped in the usual sterile fashion with ChloraPrep. Surgical timeout was performed to verify patient's identity, correct procedure being performed, and correct extremity being operated on. Everybody was in agreement. [place] exsanguination was completed and tourniquet was inflated to 250 mmHg. A midline incision was made over the patella bursa approximately 6 cm in length. Skin was sharply incised and blunt dissection down to the fluid-filled sac and circumferentially, this was dissected free without puncturing. This was peeled off the patella itself. I did culture the fluid. I did compromise the sac on the back side and this was peeled off the patella in entirety, Three liters of irrigation were run through the knee and soft tissue was curetted and ensured a complete debridement. The fluid was not beka purulence within the sac, was more of a serous yellowish-colored fluid. Once irrigated, I did repair a clean operating field. Gloves were changed. The pockets created on the lateral aspect of the knee were closed with 4-0 Monocryl. Vancomycin was placed deep in the wound. The skin was then closed in a layered fashion with 3-0 Monocryl and 3-0 nylon in running fashion. Skin was then cleaned and dried. Xeroform was placed along fluffs, Webril, Shamar wrap and hinged knee brace locked in extension. The patient awoke from anesthesia and was transferred to PACU in stable condition. POSTOPERATIVE PLAN: The patient will be admitted back to floor for postoperative antibiotics. We will follow up cultures, likely nothing will grow given the duration of antibiotics. However, we will monitor. FREDDY:elaine Job ID: [id number] Doc ID: [id number] MD SOBEIDA Mejia
[2021-04-29] MEDS: LACTATED RINGERS 1,000 ML IV SCH (15:37)
[2021-04-29] MEDS: SENNOSIDES 1 TABLET PO SCH (21:56)
[2021-04-29] MEDS ORDERED: BENZOCAINE/MENTHOL 1 LOZENGE PO ONE (23:59)
[2021-04-30] MEDS: oxyCODONE/APAP 5/325MG TABLET PO PRN ×4 (02:39→20:37)
[2021-04-30] MEDS: LACTATED RINGERS 1,000 ML IV SCH (04:27)
[2021-04-30] MEDS: PIPERACILLIN SODIUM/TAZOBACTAM 3.375 GM in DEXTROSE 5% IN WATER 50 ML IV SCH (06:02)
[2021-04-30] MEDS: 0.9 % SODIUM CHLORIDE 10 ML SYRINGE IV SCH ×3 (06:02→20:37)
[2021-04-30 06:55] LABS: Basophils # (Auto) 0.01 K/mcL (0.00-0.30); Basophils % (Auto) 0.1 % (0.0-2.0); Eosinophils # (Auto) 0 K/mcL (0.00-0.70); Eosinophils % (Auto) 0 % (0.0-7.0); Hematocrit 35.6 % (40.1-51.0); Lymphocytes # (Auto) 0.69 K/mcL (1.50-4.80); Lymphocytes % (Auto) 6.5 % (15.5-49.0); Mean Cell Volume 94.4 fL (80.0-100.0); Mean Corpuscular HGB Conc 33.7 g/dL (31.0-36.0); Mean Platelet Volume 10.5 fL (7.4-10.4); Monocytes # (Auto) 0.85 K/mcL (0.10-0.90); Neutrophils % (Auto) 85.4 % (38.0-78.0); Platelet Count 194 K/mcL (140-440); RBC 3.77 M/mcL (4.63-6.08); Red Cell Distribution Width 12.3 % (11.5-14.5); WBC 10.7 K/mcL (4.5-11.0)
[2021-04-30 07:13] LABS: ALT/SGPT 24 U/L (<40); AST/SGOT 29 U/L (<40); Albumin 2.9 gm/dL (3.2-5.2); Alkaline Phosphatase 80 U/L (39-117); Bilirubin,Total 0.4 mg/dL (0.1-1.0); Blood Urea Nitrogen 13 mg/dL (8-23); Carbon Dioxide 25 mmol/L (22-30); Chloride 100 mmol/L (96-108); Glomerular Filtration Rate 83; Glucose 142 mg/dL (70-105); Phosphorous 3.4 mg/dL (2.5-4.5)
--- NOTE | 2021-04-30 08:51 | Orthopedic Progress Note ---
SUBJECTIVE Subjective Patient information: Note initiated : 04/30/21 at 8:47 am Service Date, if different from initiated Date: [] Patient: Jerod Gonzales 75 y/o M admitted on 04/28/21 for Infected RT knee. Chief Complaint: [No acute events overnight. Pain improved.] Constitutional Vitals: Vital Signs Temp Pulse Resp BP Pulse Ox 97.5 F 54 L 14 110/68 93 04/30/21 07:25 04/30/21 07:25 04/30/21 07:25 04/30/21 07:25 04/30/21 07:25 Period Temp Pulse Resp BP Sys/Enriquez Pulse Ox Last 24 Hr 97.3 F-98.5 F 54-76 - 110-148/67-109 90-100 Intake and Output 04/29/21 04/30/21 04/30/21 21:59 05:59 13:59 Intake Total 1940 1850 50 Output Total 1275 1300 Balance 665 550 50 Weight 200 lb 6.4 oz Intake & Output: Intake & Output 04/29/21 04/30/21 04/30/21 21:59 05:59 13:59 Intake Total 1940 1850 50 Output Total 1275 1300 Balance 665 550 50 Weight 200 lb 6.4 oz Intake: IV 1200 1050 50 Sodium Chloride 0.9% 1,000 ml @ 1000 100 mls/hr IV .Q10H [facility] Rx#: [id number] Lactated Ringers 1,000 ml @ 75 1000 mls/hr IV .[id number] [facility] Rx#: [id number] Zosyn 3.375 gm In Dextrose 5% 100 50 50 in Water 50 ml @ 100 mls/hr IV Q6H [facility] Rx#:[id number] Oral 740 800 Output: Void Amount 1275 1300 Other: Meal Dinner Percent of Meal Consumed 100% Feeding Ability Independent Urine Appearance Clear Clear Urine Color Bright Yellow Dark Yellow Urine Odor Normal Strong Additional findings Additional findings: alert and oriented right knee: dressing clean/dry and intact. erythema improved, ambulated with hinged knee brace locked in extension OBJ DATA Labs CBC & Chem 7: 04/30/21 05:33 04/30/21 05:33 Labs: Abnormal Lab Results 04/30/21 04/30/21 04/29/21 05:33 05:33 05:11 WBC RBC 3.77 L Hgb 12.0 L Hct 35.6 L MPV 10.5 H Neut % (Auto) 85.4 H Lymph % (Auto) 6.5 L [place] % (Auto) Lymph # (Auto) 0.69 L [place] # (Auto) Absolute Neutrophils 9.12 H ESR Sodium Chloride Glucose 142 H Calcium 8.0 L 8.2 L C-Reactive Protein 8.60 H C-React Prot High Sens Albumin 2.9 L 3.1 L 04/29/21 04/27/21 04/27/21 05:11 23:43 23:42 WBC 11.8 H RBC 3.88 L 4.23 L Hgb 12.4 L Hct 36.4 L 38.6 L MPV Neut % (Auto) Lymph % (Auto) 12.0 L 11.6 L [place] % (Auto) 12.2 H Lymph # (Auto) 1.06 L 1.37 L [place] # (Auto) 1.08 H 1.20 H Absolute Neutrophils 9.09 H ESR 33 H Sodium Chloride Glucose Calcium C-Reactive Protein 9.60 H C-React Prot High Sens Albumin 04/27/21 23:42 WBC RBC Hgb Hct MPV Neut % (Auto) Lymph % (Auto) [place] % (Auto) Lymph # (Auto) [place] # (Auto) Absolute Neutrophils ESR Sodium 129 L Chloride 94 L Glucose 117 H Calcium 8.2 L C-Reactive Protein C-React Prot High Sens 105.4 H Albumin Meds: Medications Acetaminophen (Acetaminophen 325 Mg Tablet) 650 mg PO Q6HP PRN; Protocol PRN Reason: Per Pain Protocol/Fever > 101 Albuterol/Ipratropium (Ipratropium/Albuterol 3 Ml Ampul.Neb) 3 ml NEB Q4HRT PRN PRN Reason: Wheezing Docusate Sodium (Docusate Sodium 100 Mg Capsule) 100 mg PO BID [facility] Last Admin: 04/29/21 21:57 Dose: 100 mg Documented by: Piperacillin Sod/Tazobactam (Sod 3.375 gm/ Dextrose) 50 mls @ 100 mls/hr IV Q6H [facility] Last Infusion: 04/30/21 06:36 Dose: Infused Documented by: Lactated Ringer's (Lactated Ringers) 1,000 mls @ 75 mls/hr IV .[id number] [facility] Last Admin: 04/30/21 04:27 Dose: Not Given Documented by: Ondansetron HCl (Ondansetron 4 Mg/2 Ml Vial) 4 mg IV Q6HP PRN PRN Reason: Nausea And Vomiting Oxycodone/Acetaminophen (Oxycodone/Apap 5/325mg Tablet) 1 tab PO Q4HP PRN; Protocol PRN Reason: Per Pain Protocol Last Admin: 04/30/21 02:39 Dose: 1 tab Documented by: Senna (Sennosides 1 Tablet) 2 tab PO HS [facility] Last Admin: 04/29/21 21:56 Dose: 2 tab Documented by: Sodium Chloride (0.9 % Sodium Chloride 10 Ml Syringe) 10 ml IV Q8 [facility] Last Admin: 04/30/21 06:02 Dose: 10 ml Documented by: Throat Lozenges (Benzocaine/Menthol 1 Lozenge) 1 lozenge PO PRN PRN PRN Reason: Sore Throat Last Admin: 04/29/21 23:54 Dose: 1 lozenge Documented by: Trazodone HCl (Trazodone Hcl 50 Mg Tablet) 25 mg PO HSP PRN PRN Reason: Insomnia A/P Assessment and plan (1) Bursitis of right knee: Assessment and plan: POD 1 s/p right knee septic bursectomy -- improved pain this AM, erythema improved -- CPR slightly improved this AM -- discussed with hospitalist- will transition to oral abx for next 24 hours and if continued improvement, likely d/c home -- repeat crp in AM -- Prophy: IS, foot pumps, lovenox -- dispo: pending, possible d/c tomorrow. Status: Acute Time Spent With Patient Time: Total time spent is greater than 50% in coordination of care (as documented) at patient's floor/unit and/or counseling patient:
--- NOTE | 2021-04-30 10:04 | Internal Med Progress Note ---
SUBJECTIVE Subjective Patient information: Note initiated : 04/30/21 at 10:00 am Service Date, if different from initiated Date: [] Patient: Jerod Gonzales 75 y/o M admitted on 04/28/21 for Infected RT knee. Chief Complaint: [] Interval history: Mr. Gonzales is a 75 year old M no past medical history presenting with 1 week history of swelling and pain of his right knee. He thought that he might have been bumped his right knee into something. He started to experience swelling and pain of his right knee with the area of swelling gradually spreading. He is complaining of the 8 out of 10, deep, constant pain radiating from his right knee to the mid thigh and to lower leg, respectively. Exacerbating factors including moving his right knee joint and alleviating factors including resting. He denies any systemic symptoms such as fever, chills, diaphoresis, change in appetite, general body weakness, or GI upset such as nausea or vomiting. He presented to the minor care and was being given oral antibiotics Bactrim and Keflex for the past Sunday. He went back to the minor care yesterday due to worsening of his symptoms. He presented to our ED overnight due to continued worsening of his symptoms. Vital signs upon ED presentations within normal limits. Labs significant for mild leukocytosis with WBC 11.8. Serum lactic acid 0.6. ESR 33. Right knee x-ray showing diffuse prevertebral soft tissue swelling which may indicate cellulitis in the prepatella bursitis. 04/29: Afebrile overnight. WBC 8.9. Blood cultures no growth to date. c/o 5/10 dull constant right knee pain. Denies fever or chills or sweating. Continue IV fluid, Vancomycin/Zosyn, pain control. Seen by Dr. Gomes, decided to perform formal irrigation and debridement at noon today. 04/30: Afebrile overnight. Cultures no growth to date. Denies fever or chills. c/o severe right knee pain. Will switch antibiotics from IV to PO Ciprofloxacin today, plan to discharge home tomorrow with Rx Ciprofloxacin and follow up appointment with Dr. Gomes. Constitutional Vitals: Vital Signs Temp Pulse Resp BP Pulse Ox 36.4 C 54 L 14 110/68 93 04/30/21 07:25 04/30/21 07:25 04/30/21 07:25 04/30/21 07:25 04/30/21 07:25 Period Temp Pulse Resp BP Sys/Enriquez Pulse Ox Last 24 Hr 36.3 C-36.9 C 54-76 02-23 110-148/67-109 90-100 Intake and Output 04/29/21 04/30/21 04/30/21 21:59 05:59 13:59 Intake Total 1939 185 50 Output Total 1275 1300 800 Balance 665 550 -750 Weight 90.9 kg Intake & Output: Intake & Output 04/29/21 04/30/21 04/30/21 21:59 05:59 13:59 Intake Total 1939 185 50 Output Total 1275 1300 800 Balance 665 550 -750 Weight 90.9 kg Intake: IV 1200 1050 50 Sodium Chloride 0.9% 1,000 ml @ 1000 100 mls/hr IV .Q10H [facility] Rx#: [id number] Lactated Ringers 1,000 ml @ 75 1000 mls/hr IV .[id number] [facility] Rx#: [id number] Zosyn 3.375 gm In Dextrose 5% 100 50 50 in Water 50 ml @ 100 mls/hr IV Q6H [facility] Rx#:[id number] Oral 740 800 Output: Void Amount 1275 1300 800 Other: Meal Dinner Percent of Meal Consumed 100% Feeding Ability Independent Urine Appearance Clear Clear Urine Color Bright Yellow Dark Yellow Urine Odor Normal Strong General appearance: average body habitus, cooperative and no acute distress Head Head exam: Present atraumatic and normal inspection Eye Eye exam: Present normal appearance ENT ENT exam: Present mucous membranes moist, normal exam and normal external ear exam Neck Neck exam: Present normal inspection Respiratory Respiratory exam: Present normal respiratory exam Cardiovascular Cardiovascular exam: Present normal rate and rhythm GI/Abdominal GI/Abdominal exam: Present normal bowel sounds Extremities Exam Extremities exam: Present tenderness; Absent full ROM or normal inspection Additional comments: right knee covered with surgical dressing and cast in place Back Exam Back exam: Present normal inspection Neurological Exam Neurological exam: Present alert and oriented X3 Skin Skin exam: Present intact and warm OBJ DATA Labs CBC & Chem 7: 04/30/21 05:33 04/30/21 05:33 Labs: Abnormal Lab Results 04/30/21 04/30/21 04/29/21 05:33 05:33 05:11 WBC RBC 3.77 L Hgb 12.0 L Hct 35.6 L MPV 10.5 H Neut % (Auto) 85.4 H Lymph % (Auto) 6.5 L [place] % (Auto) Lymph # (Auto) 0.69 L [place] # (Auto) Absolute Neutrophils 9.12 H ESR Sodium Chloride Glucose 142 H Calcium 8.0 L 8.2 L C-Reactive Protein 8.60 H C-React Prot High Sens Albumin 2.9 L 3.1 L 04/29/21 04/27/21 04/27/21 05:11 23:43 23:42 WBC 11.8 H RBC 3.88 L 4.23 L Hgb 12.4 L Hct 36.4 L 38.6 L MPV Neut % (Auto) Lymph % (Auto) 12.0 L 11.6 L [place] % (Auto) 12.2 H Lymph # (Auto) 1.06 L 1.37 L [place] # (Auto) 1.08 H 1.20 H Absolute Neutrophils 9.09 H ESR 33 H Sodium Chloride Glucose Calcium C-Reactive Protein 9.60 H C-React Prot High Sens Albumin 04/27/21 23:42 WBC RBC Hgb Hct MPV Neut % (Auto) Lymph % (Auto) [place] % (Auto) Lymph # (Auto) [place] # (Auto) Absolute Neutrophils ESR Sodium 129 L Chloride 94 L Glucose 117 H Calcium 8.2 L C-Reactive Protein C-React Prot High Sens 105.4 H Albumin Meds: Medications Acetaminophen (Acetaminophen 325 Mg Tablet) 650 mg PO Q6HP PRN; Protocol PRN Reason: Per Pain Protocol/Fever > 101 Albuterol/Ipratropium (Ipratropium/Albuterol 3 Ml Ampul.Neb) 3 ml NEB Q4HRT PRN PRN Reason: Wheezing Clindamycin HCl (Clindamycin 150 Mg Capsule) 300 mg PO Q6H DAVID; Protocol Docusate Sodium (Docusate Sodium 100 Mg Capsule) 100 mg PO BID [facility] Last Admin: 04/29/21 21:57 Dose: 100 mg Documented by: Enoxaparin Sodium (Enoxaparin 40 Mg/0.4 Ml Syringe) 40 mg SQ DAILY [facility] Ondansetron HCl (Ondansetron 4 Mg/2 Ml Vial) 4 mg IV Q6HP PRN PRN Reason: Nausea And Vomiting Oxycodone/Acetaminophen (Oxycodone/Apap 5/325mg Tablet) 1 tab PO Q4HP PRN; Protocol PRN Reason: Per Pain Protocol Last Admin: 04/30/21 09:34 Dose: 1 tab Documented by: Senna (Sennosides 1 Tablet) 2 tab PO HS [facility] Last Admin: 04/29/21 21:56 Dose: 2 tab Documented by: Sodium Chloride (0.9 % Sodium Chloride 10 Ml Syringe) 10 ml IV Q8 [facility] Last Admin: 04/30/21 06:02 Dose: 10 ml Documented by: Throat Lozenges (Benzocaine/Menthol 1 Lozenge) 1 lozenge PO PRN PRN PRN Reason: Sore Throat Last Admin: 04/29/21 23:54 Dose: 1 lozenge Documented by: Trazodone HCl (Trazodone Hcl 50 Mg Tablet) 25 mg PO HSP PRN PRN Reason: Insomnia A/P Assessment and plan (1) Cellulitis of right knee: Status: Acute (2) Bursitis of right knee: Status: Acute (3) Hyponatremia: Status: Acute Narrative A/P Narrative: Assessment and Plans: 1. Cellulitis and bursitis of the right knee: Inpatient med surg s/p irrigation and debridement by Dr. Gomes yesterday 04/29 Regular diet and saline lock Lactic acid CRP, ESR, Procalcitonin Blood culture, no growth to date cbc w/ auto diff in the morning to trend WBC d/c Vancomycin d/c Zosyn Start PO Ciprofloxacin Tylenol PRN fever/mild pain Percocet PRN moderate pain Morphine IV PRN severe pain Bedrest Physical therapy Occupational therapy Plan to discharge home tomorrow with Rx of Ciprofloxacin and follow up with Dr. Gomes outpatient 2. Hyponatremia: Saline lock CMP in the morning to trend serum sodium level GI ppx: not currently indicated DVT ppx: SCDs Code status: Full Prognosis: stable Disposition: Inpatient med surg Time Spent With Patient Time: Total time spent is greater than 50% in coordination of care (as documented) at patient's floor/unit and/or counseling patient: Total time spent with greater than 50% in coordination of care (as documented) at patient's floor/unit and/or counseling patient:: Greater than 35 minutes QUALITY Stroke Symptom Onset Unknown: No VTE Deep Vein Thrombosis/Pulmonary Embolism Present on Admission: No
[2021-04-30] MEDS: DOCUSATE SODIUM 100 MG CAPSULE PO SCH ×2 (13:54→20:37)
[2021-04-30] MEDS: CLINDAMYCIN 150 MG CAPSULE PO SCH ×2 (14:19→18:08)
[2021-04-30] MEDS: ENOXAPARIN 40 MG/0.4 ML SYRINGE SQ SCH (16:21)
[2021-04-30] MEDS: SENNOSIDES 1 TABLET PO SCH (20:37)
[2021-05-01] MEDS: CLINDAMYCIN 150 MG CAPSULE PO SCH ×2 (00:01→05:41)
[2021-05-01] MEDS: oxyCODONE/APAP 5/325MG TABLET PO PRN ×3 (03:15→13:37)
[2021-05-01] MEDS: 0.9 % SODIUM CHLORIDE 10 ML SYRINGE IV SCH (05:40)
[2021-05-01 06:59] LABS: Basophils # (Auto) 0.05 K/mcL (0.00-0.30); Basophils % (Auto) 0.6 % (0.0-2.0); Eosinophils # (Auto) 0.27 K/mcL (0.00-0.70); Eosinophils % (Auto) 3.4 % (0.0-7.0); Hematocrit 37.4 % (40.1-51.0); Hemoglobin 12.5 g/dL (13.7-17.5); Lymphocytes % (Auto) 21.6 % (15.5-49.0); Mean Cell Volume 95.2 fL (80.0-100.0); Mean Corpuscular HGB Conc 33.4 g/dL (31.0-36.0); Mean Platelet Volume 9.9 fL (7.4-10.4); Monocytes # (Auto) 0.61 K/mcL (0.10-0.90); Monocytes % (Auto) 7.7 % (1.0-12.0); Neutrophils % (Auto) 66.7 % (38.0-78.0); Platelet Count 214 K/mcL (140-440); RBC 3.93 M/mcL (4.63-6.08); Red Cell Distribution Width 12.5 % (11.5-14.5); WBC 7.9 K/mcL (4.5-11.0)
[2021-05-01 07:34] LABS: ALT/SGPT 31 U/L (<40); AST/SGOT 33 U/L (<40); Albumin 3.2 gm/dL (3.2-5.2); Albumin/Globulin Ratio 1.1 (1.0-2.3); Alkaline Phosphatase 79 U/L (39-117); Bilirubin,Total 0.4 mg/dL (0.1-1.0); Blood Urea Nitrogen 13 mg/dL (8-23); Calcium 8.7 mg/dL (8.6-10.4); Carbon Dioxide 27 mmol/L (22-30); Chloride 98 mmol/L (96-108); Globulin 2.8 gm/dL (2.2-3.7); Glomerular Filtration Rate 87; Glucose 86 mg/dL (70-105); Phosphorous 2.9 mg/dL (2.5-4.5)
[2021-05-01] MEDS: DOCUSATE SODIUM 100 MG CAPSULE PO SCH (08:58)
[2021-05-01] MEDS: ENOXAPARIN 40 MG/0.4 ML SYRINGE SQ SCH (09:00)
--- NOTE | 2021-05-01 09:10 | Orthopedic Progress Note ---
SUBJECTIVE Subjective Patient information: Note initiated : 05/01/21 at 9:07 am Service Date, if different from initiated Date: [] Patient: Jerod Gonzales 75 y/o M admitted on 04/28/21 for Infected RT knee. Chief Complaint: [no acute issues overnight. diarrhea this AM] Constitutional Vitals: Vital Signs Temp Pulse Resp BP Pulse Ox 97.7 F 57 L 14 131/76 91 05/01/21 06:38 05/01/21 06:38 05/01/21 06:38 05/01/21 06:38 05/01/21 06:38 Period Temp Pulse Resp BP Sys/Enriquez Pulse Ox Last 24 Hr 97.3 F-98.3 F 57-65 14-18 116-148/73-90 91-94 Intake and Output 04/30/21 05/01/21 05/01/21 21:59 05:59 13:59 Intake Total 1860 200 Output Total 1150 1950 300 Balance 710 -1750 -300 Weight 198 lb 2 oz Intake & Output: Intake & Output 04/30/21 05/01/21 05/01/21 21:59 05:59 13:59 Intake Total 1860 200 Output Total 1150 1950 300 Balance 710 -1750 -300 Weight 198 lb 2 oz Intake: Oral 1860 200 Output: Void Amount 1150 1950 300 Other: Meal Lunch Percent of Meal Consumed 100% Urine Appearance Clear Clear Urine Color Straw Bright Yellow Urine Odor Normal Stool Size Large Stool Color Brown Additional findings Additional findings: alert, oriented, appropriate right knee: dressing removed. erythema improved, does have small seroma but no drainage. foot warm well perfused OBJ DATA Labs CBC & Chem 7: 05/01/21 05:40 05/01/21 05:40 Labs: Abnormal Lab Results 05/01/21 05/01/21 04/30/21 05:40 05:40 05:33 RBC 3.93 L Hgb 12.5 L Hct 37.4 L MPV Neut % (Auto) Lymph % (Auto) [place] % (Auto) Lymph # (Auto) [place] # (Auto) Absolute Neutrophils Glucose 142 H Calcium 8.0 L C-Reactive Protein 4.40 H 8.60 H Albumin 2.9 L 04/30/21 04/29/21 04/29/21 05:33 05:11 05:11 RBC 3.77 L 3.88 L Hgb 12.0 L 12.4 L Hct 35.6 L 36.4 L MPV 10.5 H Neut % (Auto) 85.4 H Lymph % (Auto) 6.5 L 12.0 L [place] % (Auto) 12.2 H Lymph # (Auto) 0.69 L 1.06 L [place] # (Auto) 1.08 H Absolute Neutrophils 9.12 H Glucose Calcium 8.2 L C-Reactive Protein Albumin 3.1 L 04/27/21 23:42 RBC Hgb Hct MPV Neut % (Auto) Lymph % (Auto) [place] % (Auto) Lymph # (Auto) [place] # (Auto) Absolute Neutrophils Glucose Calcium C-Reactive Protein 9.60 H Albumin Meds: Medications Acetaminophen (Acetaminophen 325 Mg Tablet) 650 mg PO Q6HP PRN; Protocol PRN Reason: Per Pain Protocol/Fever > 101 Albuterol/Ipratropium (Ipratropium/Albuterol 3 Ml Ampul.Neb) 3 ml NEB Q4HRT PRN PRN Reason: Wheezing Clindamycin HCl (Clindamycin 150 Mg Capsule) 300 mg PO Q6H [facility]; Protocol Last Admin: 05/01/21 05:41 Dose: 300 mg Documented by: Docusate Sodium (Docusate Sodium 100 Mg Capsule) 100 mg PO BID [facility] Last Admin: 05/01/21 08:58 Dose: Not Given Documented by: Enoxaparin Sodium (Enoxaparin 40 Mg/0.4 Ml Syringe) 40 mg SQ DAILY [facility] Last Admin: 05/01/21 09:00 Dose: 40 mg Documented by: Ondansetron HCl (Ondansetron 4 Mg/2 Ml Vial) 4 mg IV Q6HP PRN PRN Reason: Nausea And Vomiting Oxycodone/Acetaminophen (Oxycodone/Apap 5/325mg Tablet) 1 tab PO Q4HP PRN; Protocol PRN Reason: Per Pain Protocol Last Admin: 05/01/21 03:15 Dose: 1 tab Documented by: Senna (Sennosides 1 Tablet) 2 tab PO HS [facility] Last Admin: 04/30/21 20:37 Dose: Not Given Documented by: Sodium Chloride (0.9 % Sodium Chloride 10 Ml Syringe) 10 ml IV Q8 [facility] Last Admin: 05/01/21 05:40 Dose: 10 ml Documented by: Throat Lozenges (Benzocaine/Menthol 1 Lozenge) 1 lozenge PO PRN PRN PRN Reason: Sore Throat Last Admin: 04/29/21 23:54 Dose: 1 lozenge Documented by: Trazodone HCl (Trazodone Hcl 50 Mg Tablet) 25 mg PO HSP PRN PRN Reason: Insomnia A/P Assessment and plan (1) Bursitis of right knee: Assessment and plan: POD 2 s/p right septic prepatellar bursectomy -- cpr 4.4 this AM from a bit over 8 yesterday -- clinically improving -- dispo: from ortho standpoint ok to d/c. did place in chart rx for crutches, abx, pain meds, wound care and f/u instructions. Status: Acute Time Spent With Patient Time: Total time spent is greater than 50% in coordination of care (as documented) at patient's floor/unit and/or counseling patient:
[2021-05-01] MEDS ORDERED: SULFAMETHOXAZOLE/TRIMETHOPRIM 1 TABLET PO SCH (11:35)
--- NOTE | 2021-05-01 11:50 | Discharge Summary ---
Discharge Provider Provider Patient information: Note initiated : 05/01/21 at 11:47 am Service Date, if different from initiated Date: [] Patient: Jerod Gonzales 75 y/o M admitted on 04/28/21 for Infected RT knee. Chief Complaint: [] Date of admission: 04/28/21 08:49 Discharge date: 05/01/21 Primary care physician: PCP No Consults: 04/28/21 Consult to Physician [CONS] Stat Comment: Consulting Provider: Harley Collado Reason For Exam: Physician to Consult 04/28/21 08:48 Consult to Physician [CONS] Routine Comment: Consulting Provider: Cathleen Gomes Reason For Exam: Physician to Consult Discharge Meds Discharge Medications Home Medications hydrocodone 5 mg-acetaminophen 325 mg tablet 1 tab PO Q6H PRN #30 tab 05/01/21 [Rx Last Taken Unknown] sulfamethoxazole 800 mg-trimethoprim 160 mg tablet (Bactrim DS) 1 tab PO BID 12 Days #24 tab 05/01/21 [Rx Last Taken Unknown] COURSE Hospital Course Hospital course: ClindamycinMrToro Gonzales is a 75 year old M no past medical history presenting with 1 week history of swelling and pain of his right knee. He thought that he might have been bumped his right knee into something. He started to experience swelling and pain of his right knee with the area of swelling gradually spreading. He is complaining of the 8 out of 10, deep, constant pain radiating from his right knee to the mid thigh and to lower leg, respectively. Exacerbating factors including moving his right knee joint and alleviating factors including resting. He denies any systemic symptoms such as fever, chills, diaphoresis, change in appetite, general body weakness, or GI upset such as nausea or vomiting. He presented to the minor care and was being given oral antibiotics Bactrim and Keflex for the past Sunday. He went back to the minor care yesterday due to worsening of his symptoms. He presented to our ED overnight due to continued worsening of his symptoms. Vital signs upon ED p resentations within normal limits. Labs significant for mild leukocytosis with WBC 11.8. Serum lactic acid 0.6. ESR 33. Right knee x-ray showing diffuse prevertebral soft tissue swelling which may indicate cellulitis in the prepatella bursitis. 04/29: Afebrile overnight. WBC 8.9. Blood cultures no growth to date. c/o 5/10 dull constant right knee pain. Denies fever or chills or sweating. Continue IV fluid, Vancomycin/Zosyn, pain control. Seen by Dr. Gomes, decided to perform formal irrigation and debridement at noon today. 04/30: Afebrile overnight. Cultures no growth to date. Denies fever or chills. c/o severe right knee pain. Will switch antibiotics from IV to PO clindamycin, plan to discharge home tomorrow with Rx Ciprofloxacin and follow up appointment with Dr. Gomes. 05/01 Patient is having significant amount of diarrhea, possibly due to clindamycin. Reviewed MRSA risk factors with the patient. The patient does have a history of MRSA. Surgical cultures not growing any organisms however likely due to the patient having been on oral antibiotics prior to admission. We will discharge the patient to home on Bactrim given the history of MRSA and new diarrhea on clindamycin. Complete 14 days of antibiotics, follow-up with orthopedic surgery. Physical exam Head: Atraumatic, normal inspection. Eyes: normal appearance, no scleral icterus. Neck: full ROM Respiratory: no respiratory distress. Cardiovascular: normal rate and rhythm, S1, S2. GI/Abdominal: soft, nontender, no guarding. Extremities: Right knee in immobilizer brace, right knee incision covered with clean bandages. Neurological: CN II-XII intact, intact motor, intact sensation. Psychiatric: normal mood. Skin: warm, normal color Discharge diagnosis: right knee prepatellar septic bursitis Time Spent with Patient Time attestation: Total time spent providing and/or coordinating discharge services: EXAM Constitutional Vitals: Temp Pulse Resp BP Pulse Ox 97.7 F 57 L 14 131/76 91 05/01/21 06:38 05/01/21 06:38 05/01/21 06:38 05/01/21 06:38 05/01/21 06:38 Discharge Data Data Completed and Pending Labs on day of discharge: Labs from last 24 hours 05/01/21 05/01/21 05:40 05:40 WBC 7.9 RBC 3.93 L Hgb 12.5 L Hct 37.4 L MCV 95.2 MCH 31.8 MCHC 33.4 RDW 12.5 Plt Count 214 MPV 9.9 Neut % (Auto) 66.7 Lymph % (Auto) 21.6 [place] % (Auto) 7.7 Eos % (Auto) 3.4 Baso % (Auto) 0.6 Lymph # (Auto) 1.70 [place] # (Auto) 0.61 Eos # (Auto) 0.27 Baso # (Auto) 0.05 Absolute Neutrophils 5.25 Sodium 134 Potassium 4.0 Chloride 98 Carbon Dioxide 27 Anion Gap 9.0 BUN 13 Creatinine 0.8 GFR Calculation 87 Glucose 86 Calcium 8.7 Phosphorus 2.9 Magnesium 2.3 Total Bilirubin 0.4 AST 33 ALT 31 Alkaline Phosphatase 79 C-Reactive Protein 4.40 H Total Protein 6.0 Albumin 3.2 Globulin 2.8 Albumin/Globulin Ratio 1.1 Preliminary micro results at discharge 04/29/21 12:41 Anaerobic Culture - Preliminary Knee - Right 04/29/21 12:40 Anaerobic Culture - Preliminary Knee - Right Discharge Plan Patient/Caregiver Discharge Instructions Activity: as instructed Diet: Regular Diet Activity Restrictions/Additional Instructions: -Keep dressing clean dry and intact x3 days. OK to remove after that and as long as clean/dry without draingage, ok to shower. Do not submerge in water such as a bath. No ointments or lotions to the area. -Very important to keep compression over the area to prevent fluid accumulation around the knee cap. Either wear your RUDDY hose or the cj wrap -Weight bearing as tolerated with the hinged knee brace locked in extension. When sleeping at home- wear for the first 5 days then ok to remove while sleeping. -Ice is ok to decrease swelling and pain as needed Prescriptions: New hydrocodone-acetaminophen 5-325 mg tablet 1 tab PO Q6H PRN (Reason: pain) Qty: 30 0RF sulfamethoxazole-trimethoprim [Bactrim DS] 800-160 mg tablet 1 tab PO BID 12 Days Qty: 24 0RF Discontinued sulfamethoxazole-trimethoprim [Bactrim DS] 800-160 mg tablet 1 tab PO BID 7 Days Qty: 14 0RF cephalexin 500 mg capsule 500 mg PO QID 7 Days Qty: 28 0RF Other Ambulatory Orders: Crutches (ONCE) Location: None Selected Ordered By: Cathleen Gomes Follow Up Plan Follow up with: No,PCP [Primary Care Provider] - ObraBradley troncoso PA-C [Physician Water Resource Engineering Specialist] - (10-13 days post surgical follow up) Patient Disposition: Home, Self-Care Prognosis: Fair Overall status at discharge: patient is progressing back to baseline Discharge Orders: Discharge Order (Routine); Ordered 05/01/21 Ordered By: Jerzy Reno QUALITY VTE Deep Vein Thrombosis/Pulmonary Embolism Present on Admission: No
== END 2021-05-01 14:00 | disposition home or self-care (01) | DRG 501 ==
LOC: MEDSUR 20:52 → ED 20:52 → MEDSUR 04-28 02:45
PROVIDERS: ADMIT Internal Medicine; ATTEND Internal Medicine